=== PATIENT | female | born 1935 | race Caucasian/White ===

== ENCOUNTER 2019-03-11 09:01 | Observation (INO) ==
[2019-03-11] MEDS ORDERED: NS 1,000 ML IV ONE (09:52)
--- NOTE | 2019-03-11 10:18 | PROVIDER DOCUMENTATION ---
HPI-General Adult - General Chief Complaint: Dizziness Stated Complaint: weak, dizzy, fall Time Seen by Provider: 03/11/19 09:35 Source: patient Allergies/Adverse Reactions: Patient Allergies Allergy/AdvReac Type Severity Reaction Status Date / Time No Known Allergies Allergy Verified 03/11/19 09:19 Home Medications: Home Medication List Medication Instructions Recorded Confirmed Last Taken Type Donepezil HCl 20 mg PO QAM 03/11/19 03/11/19 03/10/19 History - History of Present Illness -Gen Adult Nature of Presenting Problems: HISTORY FROM PATIENT HAVE DEMENTIA; PER , ONLY HISTORY OF DEMENTIA AND PATIENT FALL OUT OF BED WHILE TRYING TO GO TO RESTROOM AND HAS BEEN HAVING POLYURIA. WANTS TO MAKE SURE EVERYTHING IS OKAY. FALL WAS UNWITNESSED AND PATIENT STATES SHE DESN'T REMEMBER EVERYTHING. Review of Systems - Adult - REVIEW OF SYSTEMS - ADULT ROS:: ROS per family (PT W/ DEMENTIA) Constitutional: reports: no symptoms reported Eyes: reports: no symptoms reported Ears, Nose, Mouth & Throat: reports: no symptoms reported Cardiovascular: reports: no symptoms reported Respiratory: reports: no symptoms reported Gastrointestinal: reports: no symptoms reported Genitourinary: reports: no symptoms reported Musculoskeletal: reports: no symptoms reported Integumentary: reports: no symptoms reported Neurological: reports: no symptoms reported Psychiatric: reports: no symptoms reported Endocrine: reports: no symptoms reported Hematologic/Lymphatic: reports: no symptoms reported Allergic/Immunologic: reports: no symptoms reported (PATIENT DENIES ANY DISCOMFORT.) Past History - Adult - PAST MEDICAL HISTORY-ADULT Review of Records: reports: Old Records Reviewed Physical Exam-General - PHYSICAL EXAM-ADULT Initial Vital Signs Reviewed: Yes - CONSTITUTIONAL General Appearance: appears well, alert, no apparent distress - EYES Eyes: PERRL/EOMI - HEAD, EARS, NOSE, MOUTH & THROAT HENMT: normocephalic/atraumatic, moist mucous membranes, normal ENT inspection, TMs normal - NECK Neck: non-tender, full range of motion, supple - RESPIRATORY Respiratory: chest non-tender, lungs clear, normal breath sounds, no pleuratic chest pain, no respiratory distress, no accessory muscle use - CARDIOVASCULAR Cardiovascular: normal peripheral pulses, regular rate, rhythm, no edema, no gallop, no JVD, no murmur - GASTROINTESTINAL (ABDOMEN) Abdominal Exam: normal bowel sounds, non tender, soft - MUSCULOSKELETAL Back Exam: normal inspection, no CVA tenderness, no vertebral tenderness Extremity: normal range of motion, non-tender, normal gait - SKIN Integumentary: normal color, normal turgor, warm/dry - NEUROLOGIC Neurologic: grossly normal - PSYCHIATRIC Psych/Mental Status: normal mood/affect, normal thought content, normal thought process (AOX2; BASELINE.) Progress - PLAN OF CARE/RESULTS Progress/Plan/Lab Results: Vital Signs - 8 hr 03/11/19 09:14 03/11/19 09:15 03/11/19 09:16 Temperature 97.8 F Pulse Rate 55 L 56 L 56 L Respiratory Rate 14 14 16 Blood Pressure 148/77 148/77 O2 Sat by Pulse Oximetry 99 99 100 03/11/19 09:30 03/11/19 09:45 03/11/19 10:00 Temperature Pulse Rate 56 L 61 69 Respiratory Rate 19 16 22 Blood Pressure O2 Sat by Pulse Oximetry 100 100 99 Orders Category Date Time Status FALL Precautions NOW Care 03/11/19 09:[address] HEAD W/O CONTRAST [CT] Stat Exams 03/11/19 09:52 Ordered BASIC METABOLIC PANEL [CHEM] Stat Lab 03/11/19 09:52 Uncollected CBC WITH ELECTRONIC DIFF [HEME] Stat Lab 03/11/19 09:52 Uncollected MAGNESIUM [CHEM] Stat Lab 03/11/19 09:52 Uncollected URINALYSIS [URINALYSIS] Stat Lab 03/11/19 09:52 Uncollected 0.9% Sodium Chloride Inj [Ns] 1,000 ml Med 03/11/19 09:52 Active IV 999 mls/hr Result Diagrams: 03/11/19 10:32 03/11/19 13:28 - REASSESSMENT Reassessment #1 Time Reassessed: 15:18 Status: other (PATIENT HAD DIZZINESS DURING MY VERY INITIAL ENCOUNTER AND I FORGOT TO ORDER MECLIZINE; WILL ORDER ONE NOW. REVIEW OF LABS UNREMARKABLE BUT ONLY HYPERNATUREAMI WHICH I GAVE 1L NS AND RECHEDK NOW IN NORMAL RANGE. PT TO FOLLOW UP WITH PCP.) Departure - Departure Date of Disposition Decision: 03/11/19 Time of Disposition Decision: 15:42 DIAGNOSIS: Hypernatremia, Dehydration Disposition: HOME 01 Certified Medical Emergency: Emergent Condition: Stable Additional Instructions: ED Follow Up Instructions: You have been treated by a care provider in the Emergency Department. These instructions are being provided to you so you can have an understanding of how to care for yourself upon discharge. Upon discharge from the Emergency Department, you are responsible for making arrangements for follow-up care by a physician of your choice. Take all prescribed medications as directed. Return to the Emergency Department immediately for any new or worsening symptoms. You may call the Physician Referral phone number at [phone] to obtain a list of Physicians who are taking new patients. Referrals and Follow-Ups: Vadim Ramirez MD [Primary Care Provider] - - Critical Care Note This patient required my direct & personal management of CC.: No Attestation - Physician/ JEN Attestation Patient care was provided by Advanced Practice Provider:: No The physician spent face to face time with patient:: Yes Advanced Practice Provider documentation review:: Supervising physician onsite and consulted in the evaluation and care of this patient. The physician did have a face to face encounter with the patient.
[2019-03-11 10:20] LABS: URINE SOURCE CLEAN CATCH
[2019-03-11 10:23] LABS: BILIRUBIN URINE NEGATIVE (NEGATIVE); BLOOD URINE NEGATIVE (NEGATIVE); COLOR YELLOW; GLUCOSE URINE NEGATIVE (NEGATIVE); KETONE URINE NEGATIVE (NEGATIVE); LEUKOCYTES URINE NEGATIVE (NEGATIVE); NITRITE URINE NEGATIVE (NEGATIVE); PH URINE 7.5; PROTEIN URINE NEGATIVE (NEGATIVE); SP GRAVITY URINE 1.013; TURBIDITY URINE CLEAR (CLEAR); UR EPITHELIAL CELLS <10 /HPF (<10); URINE BACTERIA NEGATIVE /HPF; URINE RBC <10 /HPF (<10); URINE WBC <10 /HPF (<10); UROBILINOGEN URINE NORMAL (NORMAL)
[2019-03-11 10:46] LABS: BASO# 0.05 X1000 (0.0-0.2); BASO% 0.9 % (0.0-0.8); EOS# 0.27 X1000 (0.0-0.7); EOS% 5.1 % (0.0-10.0); HEMATOCRIT 47.2 % (37.0-47.0); LYMPH# 1.69 X1000 (1.2-3.4); LYMPH% 32.1 % (20.5-51.1); MCH 32.9 PG (27-31); MCHC 33.9 g/dL (33-37); MCV 97.1 FL (81-99); MONO# 0.52 X1000 (0.11-0.59); MONO% 9.9 % (1.7-9.3); MPV 10.7 FL (7.4-10.4); NEUT# 2.74 X1000 (1.4-6.5); PLT 235 X1000 (130-400); RBC 4.86 XMIL (4.2-5.4); RDW 13.3 % (11.5-14.5); WBC 5.27 X1000 (4.8-10.8)
[2019-03-11 11:32] LABS: CALCIUM 10.1 mg/dL (8.8-10.2); MAGNESIUM 2.2 mg/dL (1.5-2.7); POTASSIUM 5.1 mmol/L (3.5-5.1)
--- NOTE | 2019-03-11 12:07 | Diag Imaging Result Doc PS360 ---
CT HEAD W/O CONTRAST - 03/11/2019 INDICATION: FALL; R/O SUBDURAL HEMATOMA COMPARISON: None FINDINGS: The ventricles and sulci are normal in size and contour. No intracranial mass or hemorrhage. The skull is intact. The sinuses mastoids and middle ears are clear. IMPRESSION: Negative exam. This exam was performed using automated exposure control, adjustment of mA or kV according to patient size, and/or use of iterative reconstruction technique Electronically signed by Lazaro Cabral 03/11/2019 12:04 PM
[2019-03-11 14:39] LABS: AGAP 17; BUN 13 mg/dL (8-22); CALCIUM 9.2 mg/dL (8.8-10.2); CHLORIDE 111 mmol/L (98-107); COSMO 288; CREATININE 0.8 mg/dL (0.5-0.9); ESTIMATED GFR > 60; GLUCOSE 83 mg/dL (70-104); POTASSIUM 4.4 mmol/L (3.5-5.1); SODIUM 145 mmol/L (136-145); TCO2 17 mmol/L (25-35)
[2019-03-11] MEDS ORDERED: ANTIVERT PO ONE ×2 (15:17→17:25)
[2019-03-11] MEDS ORDERED: DECADRON IM ONE (17:25)
[2019-03-11] MEDS ORDERED: ZOFRAN ODT PO PRN (18:39)
--- NOTE | 2019-03-11 18:48 | HISTORY AND PHYSICAL ---
CHIEF COMPLAINT: Severe vertigo. HISTORY OF PRESENT ILLNESS: Ms. Lopes is an 83-year-old woman who was brought to the Emergency Room by her after she became frail at home and complained of severe vertigo. He says this morning that she first cried out and he went to see her and she was in bed and said she had woken up dreaming about running and that this had woken her up. He went back to get a cup of coffee in the kitchen and heard her cry out again and came in the bedroom and found her on her hands and knees by the bed, where she had fallen. She does not believe she hit her head. She complained of severe dizziness and vertigo with the room spinning around her. She denies any ringing or roaring in her ears. She has had some headache off and on today. He brought her to the Emergency Room where she was evaluated. Initial laboratories showed a slightly high serum sodium, so she was felt to be dehydrated and was given some intravenous normal saline. Her CBC was normal. Initial blood pressure was slightly high but it has come down to 131/88. Telemetry has shown only a fairly normal sinus rhythm with occasional mild sinus bradycardia. She has no previous history of acute labyrinthitis but her says that for the past 2 mornings, she has complained very briefly of mild vertigo. She also has 2 sisters that have a history of chronic vertigo. She denies any nausea or vomiting. She arrived shortly after 9 a.m. and it is now almost 6 p.m., so she has been here nearly 9 hours with only a glass of water to drink. PAST MEDICAL HISTORY: She has a history of mild to moderate dementia but continues to drive and take her own medications. PAST SURGICAL HISTORY: Remarkable for previous hysterectomy and lysis of adhesions, both many years ago. HOME MEDICATIONS: 1. Privigen supplement. 2. Donepezil 20 mg daily. FAMILY HISTORY: Negative. SOCIAL HISTORY: She has been to her for over 50 years. They are both retired. She does not drink alcohol or use any form of tobacco. REVIEW OF SYSTEMS: General: No fever, chills, night sweats or weight loss. HEENT: No blurry vision or double vision. No ear pain. Respiratory: No cough, shortness of breath, sputum production. Cardiovascular: No history of angina or ischemic heart disease. No history of congestive heart failure or valvular heart disease. No recent palpitations or orthopnea, PND or pedal edema. GI: Her appetite is good. She denies any weight loss. She is hungry now. She has no previous history of ulcers, melena or other GI bleeding. No diarrhea or constipation. : No dysuria, increased frequency of urination or hematuria. Musculoskeletal: She scraped her knee slightly today when she fell; otherwise, no recent problems. Neurologic: As above. She denies headache right now but has had a dull, throbbing headache off and on today. PHYSICAL EXAMINATION: VITAL SIGNS: Unremarkable. See nurses' notes. GENERAL APPEARANCE: Alert, pleasant, elderly woman who is calm, cooperative and in no distress. SKIN: Warm with adequate turgor and no visible rash. HEENT EXAM: Pupils equal, round, and reactive to light and accommodation. Extraocular movements are intact but there is slight nystagmus on left lateral gaze noted. Tympanic membranes are pink and pearly. Oropharynx is benign with moist mucous membranes. NECK: Supple with no adenopathy, JVD, thyromegaly or bruits. CARDIOVASCULAR: Regular rate and rhythm. Normal S1, S2. No murmurs, rubs, or gallops. LUNGS: Clear to auscultation and percussion anteriorly and posteriorly. ABDOMEN: Soft, flat and nontender with active bowel sounds. No guarding or rebound tenderness. Bowel sounds are unremarkable. EXTREMITIES: She moves all extremities on command. NEUROLOGIC EXAM: Speech is clear and well articulated. Mental status seems normal, although memory is not fully tested. She is able to sit up and even to stand but becomes somewhat vertiginous when standing. Her balance sitting is adequate. DATA BASE: CBC is normal. Initial chemistry profile is remarkable for sodium of 153, chloride 115, BUN 15, creatinine 1.0. Repeat chemistry profile after a liter of normal saline shows sodium of 145, chloride of 111. Urinalysis is unremarkable. CT scan of the brain shows normal size and contour of the ventricles and sulci. No masses or hemorrhage are noted. Sinuses, mastoids and middle ears were unremarkable. ASSESSMENT: 1. Acute vertigo, probably due to acute labyrinthitis. She does not have decreased hearing or tinnitus to suggest Meniere's disease. 2. History of mild progressive dementia. TREATMENT PLAN: We will give another dose of meclizine. I agree that she is a fall risk should she return home tonight and hopefully, tomorrow things will be better and after evaluation by Physical Therapy, she can return home with her . I will, therefore, admit her to Observation Services and perhaps 1 dose of intramuscular Decadron will help calm her vestibular system down. Because of her dementia, we will avoid anticholinergic medications and antipsychotics. cc: Vadim Ramirez MD MTDD
[2019-03-11 23:59] LABS: URINE SOURCE CLEAN CATCH
[2019-03-12 00:01] LABS: BILIRUBIN URINE NEGATIVE (NEGATIVE); BLOOD URINE NEGATIVE (NEGATIVE); COLOR YELLOW; GLUCOSE URINE NEGATIVE (NEGATIVE); KETONE URINE NEGATIVE (NEGATIVE); LEUKOCYTES URINE NEGATIVE (NEGATIVE); NITRITE URINE NEGATIVE (NEGATIVE); PH URINE 6.5; PROTEIN URINE NEGATIVE (NEGATIVE); SP GRAVITY URINE 1.013; TURBIDITY URINE HAZY (CLEAR); UR EPITHELIAL CELLS <10 /HPF (<10); URINE BACTERIA NEGATIVE /HPF; URINE WBC <10 /HPF (<10); UROBILINOGEN URINE NORMAL (NORMAL)
--- NOTE | 2019-03-12 07:23 | EKG Report ---
Test Performed on : 03/12/2019 06:57:51 AM Test Reason : chest pain Blood Pressure : / mmHG Vent. Rate : 051 BPM Atrial Rate : 051 BPM P-R Int : 174 ms QRS Dur : 064 ms QT Int : 416 ms P-R-T Axes : 053 066 055 degrees QTc Int : 383 ms Sinus bradycardia. Otherwise normal ECG No previous ECGs available Confirmed by Maycol ROMERO, P.J.M ([id number]) on 03/13/2019 3:08:55 PM
[2019-03-12] MEDS ORDERED: VALIUM PO ONE (08:11)
[2019-03-12] MEDS ORDERED: TYLENOL PO PRN (08:26)
[2019-03-12] MEDS ORDERED: CLARITIN PO ONE (08:27)
[2019-03-12] MEDS ORDERED: ARICEPT PO SCH (09:00)
[2019-03-12 15:46] VITALS: BP 141/72
[2019-03-12] MEDS ORDERED: VALIUM PO PRN (17:36)
== END 2019-03-12 18:38 | disposition home or self-care (01) ==
LOC: SUPCPDRO → ED 09:01 → 3N 09:01 → ED 15:48
PROVIDERS: ADMIT Internal Medicine; ATTEND Internal Medicine